=== PATIENT | female | born 1985 | race Caucasian/White ===

== ENCOUNTER 2016-04-09 14:05 | Emergency (ER) | payer MEDICAID ==
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
[2016-04-09 15:24] LABS: BASO % 0.4 % (0-6); EOS % 1.8 % (0-6); GRAN % 55.8 % (47-80); HEMATOCRIT 36.8 % (35.0-47.0); HEMOGLOBIN 12.6 gm/dl (11.6-16.0); LYMPH % 37.1 % (16-45); MEAN CELL VOLUME 93.4 fl (81-97); MEAN CORPUSCULAR HGB CONC 34.2 g/dl (32-36); MEAN PLATELET VOLUME 9.9 fl (7.4-10.4); MONO % 4.9 % (0-9); PLATELET COUNT 230 K/uL (130-400); RED BLOOD COUNT 3.94 M/uL (3.80-5.40); RED CELL DISTRIBUTION WIDTH 12.1 % (11.5-14.5); WHITE BLOOD COUNT W/O DIFF 5.5 K/uL (4.2-12.2)
[2016-04-09 15:34] LABS: ALB/GLOB RATIO 1.5 (1.1-1.8); ALBUMIN 4.4 gm/dL (3.5-5.0); ALKALINE PHOSPHATASE 35 U/L (38-126); ALT/SGPT 28 U/L (9-52); ANION GAP 14.2 (7-16); AST/SGOT 19 U/L (14-36); BILIRUBIN,TOTAL 0.33 mg/dL (0.2-1.3); BLOOD UREA NITROGEN 16 mg/dL (7-17); CARBON DIOXIDE 22.8 mmol/L (22-30); CREATINE PHOSPHOKINASE 26 U/L (30-135); CREATININE 0.6 mg/dL (0.52-1.04); EST GLOMERULAR FILTRATION RATE > 60 ml/min; GLUCOSE,RANDOM 93 mg/dL (70-110); TOTAL PROTEIN 7.4 gm/dL (6.3-8.2)
[2016-04-09] MEDS ORDERED: ASPIRIN 325 MG TABLET PO ONE (15:39)
[2016-04-09 15:46] LABS: CKMB < 0.2 ug/L (0-6); TROPONIN I < 0.012 ng/mL (0.00-0.034)
[2016-04-09] MEDS ORDERED: LORAZEPAM 2 MG/ML VIAL IV ONE (16:02)
[2016-04-09] MEDS ORDERED: KETOROLAC 30 MG/ML VIAL IVP ONE (16:58)
[2016-04-09] MEDS ORDERED: ONDANSETRON HCL IV 4 MG/2 ML VIAL IVP ONE (16:58)
--- NOTE | 2016-04-13 08:44 | CT SCAN REPORT ---
EXAM: CT OF THE BRAIN WITHOUT CONTRAST HISTORY: NUMBNESS. TECHNIQUE: CT of the brain without contrast was obtained. Comparison: None. FINDINGS: The globes are intact. The paranasal sinuses and mastoid air cells are unremarkable. No displaced or depressed skull fracture. No intra or extraaxial hemorrhage. CT is limited for evaluation of acute infarct. No CT evidence for large or territorial acute infarct. No mass or midline shift. IMPRESSION: NEGATIVE CT OF THE BRAIN EXAMINATION. JOB NUMBER: [id number] MTDD
== END 2016-04-09 17:09 | disposition short-term general hospital (02) ==
LOC: ER 14:05
DX: R20.0 Anesthesia of skin (principal); R51 Headache; R07.89 Other chest pain
CPT/HCPCS: 99285 ×2; 96374; 96375; 82550; 85025; 82553; 84484; 80053; 70450; 93005; 93010; J1885; J2405; J2060

== ENCOUNTER 2016-10-13 15:41 | Emergency (ER) | payer MEDICAID, OTHER ==
[2016-10-13] MEDS ORDERED: ONDANSETRON HCL IV 4 MG/2 ML VIAL IVP ONE (16:06)
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
[2016-10-13] MEDS: DIPHENHYDRAMINE HCL IV 50 MG/ML VIAL IVP ONE (16:42)
[2016-10-13] MEDS: 0.9 % SODIUM CHLORIDE 1,000 ML BAG IV ONE (16:45)
[2016-10-13] MEDS: KETOROLAC 30 MG/ML VIAL IVP ONE (16:45)
[2016-10-13] MEDS: METOCLOPRAMIDE HCL 10 MG/2 ML VIAL IVP ONE (16:45)
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
== END 2016-10-13 17:31 | disposition home or self-care (01) ==
LOC: ER 15:41
DX: S16.1XXA Strain of muscle, fascia and tendon at neck level, initial encounter (principal); G43.909 Migraine, unspecified, not intractable, without status migrainosus; R11.2 Nausea with vomiting, unspecified; X58.XXXA Exposure to other specified factors, initial encounter
CPT/HCPCS: 99284 ×2; 96374; 96375; 72050; J1885; J1200; J2765; J7030

== ENCOUNTER 2017-04-04 05:54 | Emergency (ER) | payer MEDICAID, OTHER ==
[2017-04-04] MEDS ORDERED: DIPHENHYDRAMINE HCL IV 50 MG/ML VIAL IVP ONE (06:17)
[2017-04-04] MEDS ORDERED: 0.9 % SODIUM CHLORIDE 1,000 ML BAG IV ONE (06:17)
[2017-04-04] MEDS ORDERED: METOCLOPRAMIDE HCL 10 MG/2 ML VIAL IVP ONE (06:17)
[2017-04-04] MEDS ORDERED: KETOROLAC 30 MG/ML VIAL IVP ONE (06:17)
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
[2017-04-04] MEDS ORDERED: LORAZEPAM 2 MG/ML VIAL IV ONE (06:39)
== END 2017-04-04 07:26 | disposition home or self-care (01) ==
LOC: ER 05:54
DX: G43.909 Migraine, unspecified, not intractable, without status migrainosus (principal); R11.2 Nausea with vomiting, unspecified; H53.149 Visual discomfort, unspecified
CPT/HCPCS: 99284 ×2; 96374; 96375; 96361; J1885; J2060; J1200; J2765; J7030